=== PATIENT | female | born 1985 | race Caucasian/White ===

== ENCOUNTER 2017-05-15 20:11 | Emergency (ER) | payer SELFPAY ==
[2017-05-15 20:40] VITALS: RESP 18
--- NOTE | 2017-05-15 21:17 | C.PDOC ---
History Of Present Illness 32 y/o female presents to emergency department with complaint of left flank pain for 3 days. Patient reports pain radiates to the groin area. She also reports dysuria. Denies fever, chills, nausea, vomiting, diarrhea, hematuria, or vaginal bleeding. Notes LMP 04/06/17 and states (+) possibility of being . Chief Complaint (Nursing): Female Genitourinary History Per: Patient History/Exam Limitations: no limitations Onset/Duration Of Symptoms: Days Current Symptoms Are (Timing): Still Present Recent travel outside of the [place]: No Past Medical History Reviewed: Historical Data, Nursing Documentation, Vital Signs Vital Signs: Last Vital Signs Temp 98.3 F 05/15/17 20:38 Pulse 73 05/15/17 20:38 Resp 18 05/15/17 20:38 BP 118/85 05/15/17 20:38 Pulse Ox 98 05/15/17 21:17 - Medical History PMH: No Chronic Diseases Family History: States: Unknown Family Hx - Social History Hx Tobacco Use: No Hx Alcohol Use: Yes Hx Substance Use: No - Immunization History Hx Tetanus Toxoid Vaccination: No Hx Influenza Vaccination: No Hx Pneumococcal Vaccination: No Review Of Systems Except As Marked, All Systems Reviewed And Found Negative. Constitutional: Negative for: Fever, Chills Cardiovascular: Negative for: Chest Pain, Palpitations Respiratory: Negative for: Cough, Shortness of Breath, Wheezing Gastrointestinal: Positive for: Abdominal Pain ((+) Flank Pain, Left). Negative for: Nausea, Vomiting Genitourinary: Positive for: Dysuria. Negative for: Frequency, Hematuria, Vaginal Discharge Skin: Negative for: Rash Neurological: Negative for: Dizziness Physical Exam - Physical Exam Appears: Non-toxic, No Acute Distress Skin: Normal Color, Warm, Dry Head: Atraumatic, Normacephalic Oral Mucosa: Moist Chest: Symmetrical Cardiovascular: Rhythm Regular Respiratory: Normal Breath Sounds, No Rales, No Rhonchi, No Wheezing Gastrointestinal/Abdominal: Soft, No Tenderness, No Guarding, No Rebound Back: CVA Tenderness (Left), No Vertebral Tenderness Extremity: Normal ROM, Capillary Refill (< 2 sec. ) Extremity: Bilateral: Normal Color And Temperature Neurological/Psych: Oriented x3, Normal Speech, Normal Cognition ED Course And Treatment - Laboratory Results Result Diagrams: 05/15/17 21:26 05/15/17 21:26 O2 Sat by Pulse Oximetry: 98 (RA) Pulse Ox Interpretation: Normal Progress Note: Upreg, UA ordered and reviewed. Disposition Counseled Patient/Family Regarding: Diagnosis - Disposition Referrals: [facility] [Outside] Disposition: HOME/ ROUTINE Disposition Time: 23:08 Condition: STABLE Prescriptions: Ciprofloxacin [Cipro] 1 tab PO BID #14 tab Naproxen 375 mg PO TIDPC #20 tablet Instructions: Flank Pain (ED), Urinary Tract Infection in Women (GEN) Forms: [employer] (Lao) - POA Present On Arrival: None - Clinical Impression Clinical Impression: Flank pain, Urinary tract infection - Scribe Statement The provider has reviewed the documentation as recorded by the Scribe Rashaun Nunez All medical record entries made by the Camibe were at my direction and personally dictated by me. I have reviewed the chart and agree that the record accurately reflects my personal performance of the history, physical exam, medical decision making, and the department course for this patient. I have also personally directed, reviewed, and agree with the discharge instructions and disposition.
[2017-05-15 21:37] LABS: RBC URINE 9 /hpf (0-3); URINE BACTERIA OCC (<OCC); URINE BILIRUBIN NEGATIVE (NEGATIVE); URINE BLOOD 1+ (NEGATIVE); URINE COLOR Yellow (YELLOW); URINE GLUCOSE (UA) NORMAL (Normal); URINE KETONE NEGATIVE (NEGATIVE); URINE LEUKOCYTE ESTERASE TRACE Leu/uL (Negative); URINE PROTEIN NEGATIVE (NEGATIVE); WBC URINE 2 /hpf (0-5)
[2017-05-15 21:39] LABS: CHLORIDE 99 mmol/L (98-107); SODIUM 139 mmol/L (132-148)
[2017-05-15 21:40] LABS: POTASSIUM 4.1 mmol/L (3.6-5.2)
[2017-05-15 21:41] LABS: GFR AFRICAN-AMERICAN > 60
[2017-05-15 21:42] LABS: ALKALINE PHOSPHATASE 77 U/L (38-126); ALT/SGPT 30 U/L (9-52); AST/SGOT 24 U/L (14-36); BILIRUBIN,TOTAL 0.5 mg/dL (0.2-1.3); BLOOD UREA NITROGEN 13 mg/dL (7-17); CARBON DIOXIDE 26 mmol/L (22-30); GLUCOSE,RANDOM 84 mg/dL (65-105)
[2017-05-15 21:43] LABS: BASO # 0.1 K/uL (0.0-0.2); BASO % 0.5 % (0.0-2.0); CALCIUM 8.9 mg/dl (8.6-10.4); EOS # 0.2 K/uL (0.0-0.7); EOS % 2.2 % (0.0-4.0); HEMATOCRIT 36.9 % (34.0-47.0); LYMPH # 2.5 K/uL (1.0-4.3); LYMPH % 24.2 % (20.0-40.0); MEAN CELL VOLUME 87.3 fL (81.0-99.0); MEAN CORPUSCULAR HGB CONC 34.4 g/dL (33.0-37.0); MONO # 0.7 K/uL (0.0-0.8); MONO % 7.2 % (0.0-10.0); RED CELL DISTRIBUTION WIDTH 12.7 % (11.5-14.5); WHITE BLOOD COUNT 10.2 K/uL (4.8-10.8)
[2017-05-15 22:31] LABS: ALB/GLOB RATIO 1.3 (1.0-2.1); TOTAL PROTEIN 7.7 g/dL (6.3-8.3)
--- NOTE | 2017-05-15 23:02 | CT ---
EXAM: CT Abdomen and Pelvis Without Intravenous Contrast EXAM DATE/TIME: 05/15/2017 9:39 PM CLINICAL HISTORY: 32 years old, female; Pain; Abdominal pain; Flank; Left lower quadrant (llq); Additional info: Left flank pain TECHNIQUE: Axial computed tomography images of the abdomen and pelvis without intravenous contrast. All CT scans at this facility use one or more dose reduction techniques, viz.: automated exposure control; ma/kV adjustment per patient size (including targeted exams where dose is matched to indication; i.e. head); or iterative reconstruction technique. Coronal and sagittal reformatted images were created and reviewed. COMPARISON: US - OB TRANSVAGINAL 12/25/2015 11:44:30 PM FINDINGS: Lower thorax: Heart size is normal. There is atelectasis at the lung bases. There is a small hiatal hernia. ABDOMEN: Liver: Unremarkable Gallbladder and bile ducts: unremarkable Pancreas: unremarkable Spleen: unremarkable Adrenals: unremarkable Kidneys and ureters: There is right renal scarring. There is small nonobstructing right renal stones. Left kidney is unremarkable.There is no pelvocaliectasis or ureterectasis. Stomach and bowel: Stomach is partially distended. Rotation is normal. Small bowel is mildly distended with air and fluid. There is no obstruction.Appendix and terminal ileum are unremarkable. There is moderate stool throughout the colon. There is scattered diverticulosis. Appendix: See above. PELVIS: Bladder: unremarkable Reproductive: Uterus and right adnexal structures are unremarkable. There is mild prominence of the left adnexa ABDOMEN and PELVIS: Intraperitoneal space: There is trace free fluid in the pelvis.There is no free air. Bones/joints: There degenerative changes in the spine. There is L4 spondylolisthesis with no significant spondylolisthesis. There is L4/L5 disc bulging. There is marked narrowing of the L5-S1 disc space. Soft tissues: There is a small fat containing umbilical hernia. Vasculature: Vascular structures are unremarkable. Lymph nodes: There is no pathologic adenopathy. IMPRESSION: No acute solid visceral abnormality; right renal scarring, no obstructing renal or ureteral stones or hydronephrosis; no appendicitis or diverticulitis; mild prominence of the left adnexa Additional findings as described above.
[2017-05-15] MEDS ORDERED: Naproxen 550 mg Tab PO STA (23:13)
[2017-05-15] MEDS ORDERED: Naproxen 550 mg Tab PO ONE (23:15)
[2017-05-15 23:43] VITALS: BP 134/88; PULSE 60; TEMP 98; O2SAT 100
== END 2017-05-15 23:25 | disposition home or self-care (01) ==
LOC: C.ER 20:11
DX: N39.0 Urinary tract infection, site not specified (principal); R10.9 Unspecified abdominal pain
CPT/HCPCS: 74176; 80053; 81001; 83690; 84703; 85025; 87086; 96374; 99285; J1885